=== PATIENT | female | born 1945 | race Caucasian/White ===

== ENCOUNTER 2018-10-13 15:54 | Observation (INO) ==
[2018-10-13] MEDS ORDERED: 0.9 % Sodium Chloride 1,000 ML IVC ONE (16:15)
--- NOTE | 2018-10-13 16:32 | Emergency Department Note ---
Disposition Clinical Impression: Irregular heartbeat Disposition: Admitted As Inpatient Condition: Fair Referrals: Mel Lance MD [Primary Care Provider] - Forms: ED Satisfaction Letter Time of Disposition: 17:58 Arrhythmia/Palpitations HPI - General Chief Complaint: ED Arrhythmia/Palpitations Stated Complaint: heart feels fluttery Time Seen by Provider: 10/13/18 16:08 Source: patient Mode of arrival: wheelchair Limitations: no limitations Nursing Notes Reviewed: Yes Vital Signs Reviewed: Yes - History of Present Illness Pt Subjective Complaint: "skipped beats", palpitations Onset (ago): Just LEASE OUT MAN Duration: intermittent, now resolved (Patient states it lasted for about a half an hour and then resolved. 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 Denies: chest pain, shortness of breath, near-syncope, diaphoresis - Related Data Home Medications Medication Instructions Recorded Confirmed Estrogens, Conjugated [Premarin] 0.3 mg PO DAILY 11/08/17 10/13/18 Levothyroxine [Synthroid] 25 mcg PO DAILY 11/08/17 10/13/18 Multivitamin [Multivitamins] 1 each PO DAILY 11/08/17 10/13/18 [place]-3/Dha/Epa/Fish Oil [[place] 3 1 each PO DAILY 11/08/17 10/13/18 500 Softgel] Previous Rx's Medication Instructions Recorded GuaiFENesin/Dextromethorphan 5 ml PO Q6HR PRN #120 syrup 11/08/17 [Robitussin/DM] Allergies Allergy/AdvReac Type Severity Reaction Status Date / Time No Known Allergies Allergy Verified 10/13/18 16:05 All systems ED: reviewed and negative except as stated. Constitutional: Denies: fever Cardiovascular: Reports: palpitations. Denies: chest pain Respiratory: Denies: dyspnea, wheezes Gastrointestinal: Denies: abdominal pain, nausea, vomiting Musculoskeletal: Denies: joint swelling Integumentary: Denies: rash Past Medical History - Past Medical History Attestation: Yes The following information was validated with the patient. Source: patient, old records reviewed, nursing notes reviewed Medical history: Reports: non-contributory Psychiatric history: Reports: no psych history - Social History Smoking Status: Never smoker Smokeless Tobacco Status: No Alcohol use: Reports: occasionally Drug use: Reports: none Physical Exam - General Limitations: no limitations General appearance: alert, in no apparent distress - Head Head exam: atraumatic, normocephalic, normal inspection - Eye Eye exam: Present: normal appearance, PERRL, EOMI. Absent: scleral icterus, conjunctival injection, periorbital swelling - ENT ENT exam: normal exam, normal oropharynx, mucous membranes moist, normal external ear exam - Neck Neck exam: Present: normal inspection, full ROM, trachea midline. Absent: thyr omegaly - Chest Chest inspection: Present: normal inspection, symmetric chest wall rise. Absent: tenderness - Respiratory Respiratory exam: Present: normal lung sounds bilaterally. Absent: respiratory distress, wheezes - Cardiovascular Cardiovascular exam: Present: regular rate, normal rhythm, normal heart sounds, other (Patient had a very occasional extra beat on exam) - Abdominal Exam Abdominal exam: Present: soft, Non-Tender, normal bowel sounds - Extremities Exam Extremities exam: Present: normal inspection. Absent: pedal edema, calf tenderness - Neurological Exam Neurological exam: Present: alert, oriented X3 - Psychiatric Psychiatric exam: Present: normal affect, normal mood - Skin Skin exam: Present: warm, dry. Absent: rash Course Course Narrative: Patient presents emergency department after having some persistent palpitations of her heart. She is very insistent that it was not a racing heartbeat but rather skipping beats but they were frequent and they lasted for about a half hour. She says she felt while it was happening. Here in the department she says she just feels tired. She did not have any chest pain or shortness of breath or nausea or diaphoresis or syncope. Here in the department I have only seen a very occasional PVC on the alarm security or surveillance monitor. Physical exam is unremarkable. We will do a workup on the patient and keep her monitored. I will give her some IV fluids. Disposition will be based on diagnostic results and reevaluation. - Reevaluation(s) Reevaluation #1: Workup was negative at this point. However this is a 71-year-old lady who is in very good state of health who has this abrupt onset of irregular heartbeat that is extremely unusual for her. Furthermore made her feel weak so she was symptomatically with it. I am only seen a couple PVCs here and they are in the department but because of the overall situation I think it smart to keep her in the hospital and monitor her overnight for any other dysrhythmia that may occur. I discussed the case with Dr. Turk hospitalist and he accepted patient for admission. Time: 17:57 - Consultations Consultation #1: Dr. Turk, hospitalist - I discussed case with the hospitalist. He gave verbal orders to admit the patient. Time: 17:50 Vital Signs Temperature 98.2 F 10/13/18 15:56 Pulse Rate 65 10/13/18 15:56 Respiratory Rate 14 10/13/18 15:56 Blood Pressure 149/98 10/13/18 15:56 O2 Sat by Pulse Oximetry 97 10/13/18 15:56 Temperature 98.2 F 10/13/18 15:56 Pulse Rate 64 10/13/18 17:46 Respiratory Rate 18 10/13/18 17:46 Blood Pressure 146/73 10/13/18 17:46 O2 Sat by Pulse Oximetry 99 10/13/18 17:46 Oxygen Delivery Oxygen Delivery Room Air Arrhythmia/Palpitations - Medical Records Medical records reviewed: Yes I reviewed the patient's medical records. - Lab Data Lab results reviewed: Yes I reviewed the patient's lab results. Result diagrams: 10/13/18 16:29 10/13/18 16:29 Lab Results 10/13/18 10/13/18 10/13/18 Range/Units 16:12 16:29 16:29 WBC 5.2 (4.3-11.1) K/mcL RBC 3.49 L (3.82-4.97) M/mcL Hgb 10.7 L (11.5-15.4) g/dL Hct 32.1 L (35.3-44.9) % MCV 92.0 (83.0-100.0) fL MCH 30.7 (28.0-33.3) pg MCHC 33.3 (31.6-35.5) g/dL RDW 12.1 (11.5-14.5) % Plt Count 323 (140-400) K/mcL MPV 9.3 L (9.4-12.4) fL Immature Gran % 0.4 (0-4) % Seg Neutrophils % 42.4 % Lymphocytes % 41.1 % Monocytes % 11.0 % Eosinophils % 4.3 % Basophils % 0.8 % Neutrophils # 2.2 (1.6-8.9) K/mcL Lymphocytes # 2.1 (0.6-4.6) K/mcL Monocytes # 0.6 (0.0-1.3) K/mcL Eosinophils # 0.2 (0.0-0.6) K/mcL Basophils # 0.0 (0.0-0.2) K/mcL D-Dimer 403 (0-500) ng/mLFEU Sodium (136-145) mEq/L Potassium (3.5-5.1) mEq/L Chloride (98-107) mEq/L Carbon Dioxide (23-29) mEq/L BUN (8-23) mg/dL Creatinine (0.60-1.20) mg/dL Est GFR ( Amer) (> 60) Est GFR (Non-Af Amer) (> 60) BUN/Creatinine Ratio (6-26) Glucose (70-105) mg/dL POC Glucose 106 H (70-99) mg/dL Calculated Osmolality (280-300) Calcium (8.6-10.3) mg/dL Troponin I (< 0.04) ng/mL B-Natriuretic Peptide (Less than 100) pg/mL Urine Color (Yellow) Urine Clarity (Clear) Urine pH (5.0-8.0) pH Units Ur Specific [place] (1.010-1.025) Urine Protein (Neg-Trace) mg/dL Urine Glucose (UA) (Normal) mg/dL Urine Ketones (Negative) mg/dL Urine Blood (Negative) Urine Nitrite (Negative) Urine Bilirubin (Negative) Urine Urobilinogen (Normal) mg/dL Ur Leukocyte Esterase (Negative) Ur Culture Indicated? (NO) 10/13/18 10/13/18 10/13/18 Range/Units 16:29 16:29 16:35 WBC (4.3-11.1) K/mcL RBC (3.82-4.97) M/mcL Hgb (11.5-15.4) g/dL Hct (35.3-44.9) % MCV (83.0-100.0) fL MCH (28.0-33.3) pg MCHC (31.6-35.5) g/dL RDW (11.5-14.5) % Plt Count (140-400) K/mcL MPV (9.4-12.4) fL Immature Gran % (0-4) % Seg Neutrophils % % Lymphocytes % % Monocytes % % Eosinophils % % Basophils % % Neutrophils # (1.6-8.9) K/mcL Lymphocytes # (0.6-4.6) K/mcL Monocytes # (0.0-1.3) K/mcL Eosinophils # (0.0-0.6) K/mcL Basophils # (0.0-0.2) K/mcL D-Dimer (0-500) ng/mLFEU Sodium 133 L (136-145) mEq/L Potassium 4.0 (3.5-5.1) mEq/L Chloride 101 (98-107) mEq/L Carbon Dioxide 24 (23-29) mEq/L BUN 13 (8-23) mg/dL Creatinine 0.89 (0.60-1.20) mg/dL Est GFR ( Amer) > 60 (> 60) Est GFR (Non-Af Amer) > 60 (> 60) BUN/Creatinine Ratio 15 (6-26) Glucose 102 (70-105) mg/dL POC Glucose (70-99) mg/dL Calculated Osmolality 276 L (280-300) Calcium 9.2 (8.6-10.3) mg/dL Troponin I < 0.03 (< 0.04) ng/mL B-Natriuretic Peptide 32 (Less than 100) pg/mL Urine Color Yellow (Yellow) Urine Clarity Clear (Clear) Urine pH 6.0 (5.0-8.0) pH Units Ur Specific [place] <= 1.005 L (1.010-1.025) Urine Protein Negative (Neg-Trace) mg/dL Urine Glucose (UA) Normal (Normal) mg/dL Urine Ketones Negative (Negative) mg/dL Urine Blood Negative (Negative) Urine Nitrite Negative (Negative) Urine Bilirubin Negative (Negative) Urine Urobilinogen Normal (Normal) mg/dL Ur Leukocyte Esterase Negative (Negative) Ur Culture Indicated? NO (NO) - Radiology Data Radiology results reviewed: Yes I reviewed the patient's radiology results. - EKG Data EKG attestation: Yes I reviewed and interpreted this EKG. EKG results narrative: Twelve-lead EKG performed at 1601 p.m. ordered, reviewed and interpreted by ED physician shows a sinus rhythm at a rate of 65. Normal axis. Good R-wave progression across precordium. A single PVC was noted. The PVC was atypical in appearance. There was one other beat that showed an unusual ST segments. The rest of the EKG showed no acute ischemic changes.
[2018-10-13 16:35] LABS: Hematocrit 32.1 % (35.3-44.9); Hemoglobin 10.7 g/dL (11.5-15.4); Mean Corpuscular HGB Conc 33.3 g/dL (31.6-35.5); Mean Corpuscular Hemoglobin 30.7 pg (28.0-33.3); Mean Platelet Volume 9.3 fL (9.4-12.4); Platelet Count 323 K/mcL (140-400); Red Blood Count 3.49 M/mcL (3.82-4.97); Red Cell Distribution Width 12.1 % (11.5-14.5); Segmented Neutrophils % 42.4 %
[2018-10-13 16:36] LABS: Basophils % 0.8 %; Eosinophils # 0.2 K/mcL (0.0-0.6); Eosinophils % 4.3 %; Immature Granulocytes % 0.4 % (0-4); Lymphocytes # 2.1 K/mcL (0.6-4.6); Lymphocytes % 41.1 %; Monocytes # 0.6 K/mcL (0.0-1.3); Neutrophils # 2.2 K/mcL (1.6-8.9)
[2018-10-13 16:50] LABS: Bilirubin,Urine Negative (Negative); Blood,Urine Negative (Negative); Clarity,Urine Clear (Clear); Color,Urine Yellow (Yellow); Glucose,Urine (UA) Normal (Normal); Ketones,Urine Negative (Negative); Leukocyte Esterase,Urine Negative (Negative); Nitrite,Urine Negative (Negative); Protein,Urine Negative (Neg-Trace); Specific Gravity,Urine <= 1.005 (1.010-1.025); Urobilinogen,Urine Normal (Normal)
[2018-10-13 16:53] LABS: BUN/Creatinine Ratio 15 (6-26); Blood Urea Nitrogen 13 mg/dL (8-23); Calcium 9.2 mg/dL (8.6-10.3); Carbon Dioxide 24 mEq/L (23-29); Chloride 101 mEq/L (98-107); Glucose 102 mg/dL (70-105); Osmolality,Calculated 276 (280-300); Sodium 133 mEq/L (136-145); eGFR For Non-African Americans > 60 (> 60)
[2018-10-13 16:54] LABS: Troponin I < 0.03 ng/mL (< 0.04)
[2018-10-13] MEDS ORDERED: Naloxone 0.4 MG/ML INJ IVP PRN (18:37)
[2018-10-13] MEDS: 0.9 % Sodium Chloride 1,000 ML IVC SCH (19:50)
[2018-10-14 06:26] VITALS: BP 137/75
[2018-10-14] MEDS ORDERED: Levothyroxine 25 MCG TABLET PO SCH (06:30)
[2018-10-14] MEDS: 0.9 % Sodium Chloride 1,000 ML IVC SCH (08:42)
--- NOTE | 2018-10-14 10:33 | Internal Med History&Physical ---
Date of Encounter: 10/14/18 Time of Encounter: 10:05 Assessment and Plan (1) PVCs (premature ventricular contractions) Current visit: Yes Status: Acute Symptomatic. Now resolved without recurrence for several hours. She wishes to be discharged home. (2) Anemia Current visit: Yes Status: Acute Hemoglobin has progressively decreased since the 07/07/2018 level of 12.6. Anemia testing can be done as an outpatient. Qualifiers: Anemia type: unspecified type Qualified Code(s): D64.9 - Anemia, unspecified (3) Hypothyroidism Current visit: Yes Status: Chronic TSH was normal at 1.4790 09/17/2018. Qualifiers: Hypothyroidism type: unspecified Qualified Code(s): E03.9 - Hypothyroidism, unspecified Internal Medicine - H&P: HPI Chief complaint: Palpitations Admitted From: Emergency Dept Plans for Post Hospital Care: Home History of present illness: Ms. 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 When the sensation of palpitations persisted she came to emergency room. Her manager cardiac cath showed occasional PVCs. She was admitted to [facility] floor for ongoing care needs. She has had occasional short-lived sensation of ectopy in the past. There has been no syncopal or syncopal episodes. She denies hypertension [place] heart failure angina DVT or pulmonary embolus. She has not had stress test or heart catheter done. She feels back to her baseline now and wishes to be discharged home. Past Med Surg Social Fam HX - Past Medical History Medical history: non-contributory, arthritis, malignancy, thyroid disease Psychiatric history: no psych history - Past Surgical History Surgical History: cancer surgery, hysterectomy - Social History Smoking Status: Never smoker Smokeless Tobacco Status: No Alcohol use: occasionally Drug use: none - Family History Mother Living Status: Hx Family Cardiac Disorders: Yes Internal Medicine - H&P: Meds Estrogens, Conjugated [Premarin] 0.3 mg PO DAILY 11/08/17 [History] GuaiFENesin/Dextromethorphan [Robitussin/DM] 5 ml PO Q6HR PRN #120 syrup 11/08/17 [Rx] Levothyroxine [Synthroid] 25 mcg PO DAILY 11/08/17 [History] Multivitamin [Multivitamins] 1 each PO DAILY 11/08/17 [History] [place]-3/Dha/Epa/Fish Oil [[place] 3 500 Softgel] 1 each PO DAILY 11/08/17 [History] Allergy/AdvReac Type Severity Reaction Status Date / Time No Known Allergies Allergy Verified 10/13/18 16:05 All Systems PM: A 10-system review of systems was performed and is negative for pertinent findings except as documented above in the HPI. Review of systems: Gen.: She states her weight is stable the past few months Cardiovascular: As per history of present illness Respiratory: She is a lifelong nonsmoker and has no known chronic lung disease GI: She denies disorders of her liver gallbladder or exocrine pancreas. She had colon cancer 2001 with segmental resection which was curative. She did not require chemotherapy postoperatively. She has had several colonoscopies since the resection with most recent one 2014. She denies melena or hematochezia. : She has had kidney stones in the past. 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 Neurologic: She denies large distribution strokes or seizures. Endocrine: She has history of hypothyroidism and hyperlipidemia. She denies diabetes. Hematology/oncology: She had colon cancer 2001 as per above. She denies other internal malignancies. She reports history of anemia but was unaware she had anemia on labs in emergency room. Psychiatric: She denies anxiety depression or other mental health issues. [place] skeletal: She has had bilateral knee injections. She has DJD and history of Raynaud's disease. - Constitutional Vitals: Temp Pulse Resp BP Pulse Ox 98.5 F 61 16 137/75 96 10/14/18 06:26 10/14/18 06:26 10/14/18 06:26 10/14/18 06:26 10/14/18 06:26 Exam: Gen.: She is a well-developed well-nourished female resting comfortably in bed who appears in no acute distress at present time HEENT: Head is atraumatic and normocephalic. Eyes: EOMI. There is no scleral icterus. Mouth: Mucosa is moist. Neck: Supple and nontender. There is no thyromegaly or adenopathy noted. Heart: Regular without murmurs gallops or ectopics Lungs: No wheezes or crackles are heard. Abdomen: Soft and nontender. No masses or guarding are noted. Extremities: There is no cyanosis edema or clubbing noted. Dorsalis pedis and posttibial pulses are 1-2 over 2 bilaterally. She has DJD changes of her hands. Neurologic: Mental status: She is talkative and a good historian. Cranial nerves: Smile is symmetric. Forehead wrinkles bilaterally. Tongue protrudes midline. EOMI. Motor: There is no pronator drift. Cerebellar: Finger to nose is intact bilaterally. Skin: Warm and dry Internal Med - H&P Results - Labs CBC & Chem 7: 10/13/18 16:29 10/13/18 16:29 Labs: Short CBC 10/13/18 Range/Units 16:29 WBC 5.2 (4.3-11.1) K/mcL Hgb 10.7 L (11.5-15.4) g/dL Hct 32.1 L (35.3-44.9) % Plt Count 323 (140-400) K/mcL Neutrophils # 2.2 (1.6-8.9) K/mcL BMP 10/13/18 16:29 Sodium 133 L Potassium 4.0 Chloride 101 Carbon Dioxide 24 BUN 13 Creatinine 0.89 Glucose 102 Calcium 9.2 Cardiac Enzymes 10/13/18 10/13/18 10/14/18 Range/Units 16:29 22:24 04:36 Troponin I < 0.03 < 0.03 < 0.03 (< 0.04) ng/mL Urine 10/13/18 Range/Units 16:35 Urine Color Yellow (Yellow) Urine Clarity Clear (Clear) Urine pH 6.0 (5.0-8.0) pH Units Ur Specific [place] <= 1.005 L (1.010-1.025) Urine Protein Negative (Neg-Trace) mg/dL Urine Glucose (UA) Normal (Normal) mg/dL - Impressions ITS Impressions Chest X-Ray 10/13/18 16:15 IMPRESSION: No acute cardiopulmonary findings. D/ / Skip Espinosa / Skip Espinosa Interpreting Provider: Skip Espinosa
--- NOTE | 2018-10-14 10:55 | Discharge Summary ---
Orders not resulted at time of discharge: Pending orders 10/14/18 10:30 Troponin I Q6H Date of Encounter: 10/14/18 Time of Encounter: 10:05 - Discharge Diagnosis (1) PVCs (premature ventricular contractions) Priority: Primary Status: Acute (2) Anemia Priority: Secondary Status: Acute Qualifiers: Anemia type: unspecified type Qualified Code(s): D64.9 - Anemia, unspecified (3) Hypothyroidism Priority: Secondary Status: Chronic Qualifiers: Hypothyroidism type: unspecified Qualified Code(s): E03.9 - Hypothyroidism, unspecified Hospital course: Ms. 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 When the sensation of palpitations persisted she came to emergency room. Her youth nutritional monitor showed occasional PVCs. She was admitted to [facility] for ongoing care needs. Initial orders were written by the emergency room physician. I saw her on October 14 and performed a history physical and discharge. She was placed on telemetry and no ectopy was observed. Repeat cardiac enzymes show no evidence of myocardial damage. When I saw her she felt back to her baseline and wished to be discharged home which I felt was reasonable. She will follow with her PCP within 1 week. I told her she had anemia on labs in emergency room. Her PCP can order further workup as needed. She will follow Dr. Lance within 1 week. - Time Spent with Patient Total time spent providing and/or coordinating discharge services: - Discharge Medications Home Medications: Estrogens, Conjugated [Premarin] 0.3 mg PO DAILY 11/08/17 [History] GuaiFENesin/Dextromethorphan [Robitussin/Dm] 5 ml PO Q6HR PRN #120 syrup 11/08/17 [Rx] Levothyroxine [Synthroid] 25 mcg PO DAILY 11/08/17 [History] Multivitamin [Multivitamins] 1 each PO DAILY 11/08/17 [History] [place]-3/Dha/Epa/Fish Oil [[place] 3 500 Softgel] 1 each PO DAILY 11/08/17 [History] Allergies/Adverse Reactions: Allergy/AdvReac Type Severity Reaction Status Date / Time No Known Allergies Allergy Verified 10/13/18 16:05 Date of admission: 10/13/18 18:13 Primary care physician: Mel Lance - Constitutional Vitals: Temp Pulse Resp BP Pulse Ox 98.5 F 61 16 137/75 96 10/14/18 06:26 10/14/18 06:26 10/14/18 06:26 10/14/18 06:26 10/14/18 06:26 - Patient Status Disposition: Home, Self-Care Condition: Fair - Discharge Instructions Follow Up With: Mel Lance MD [Primary Care Provider] - 1 week - Diet and Activity Activity: resume usual activities as tolerated Diet: advance to your usual diet
--- NOTE | 2018-10-14 12:34 | Electrocardiograph Report ---
[address] [address] Test Date: 2018-10-13 Pat Name: Janeth Yangp Department: 9201 Room: [facility] Gender: F Content Analyst: [id number] : 1945 Requested By: Zak Ca Order Number: [id number] Reading MD: Isis Duong Measurements Intervals [place]ty Rate: 65 P: 65 ME: 160 QRS: 9 QRSD: 80 T: 47 QT: 410 QTc: 422 Interpretive Statements SINUS RHYTHM POSSIBLE LEFT ATRIAL ENLARGEMENT SEPTAL MYOCARDIAL INFARCTION, PROBABLY OLD Electronically Signed On 10-14-2018 12:32:45 EST by Isis Duong
--- NOTE | 2018-10-14 14:53 | Electrocardiograph Report ---
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
== END 2018-10-14 12:16 | disposition home or self-care (01) ==
LOC: INPPIK 15:54 → EMEROOPIK 15:54 → INPPIK 18:33
PROVIDERS: ADMIT Internal Medicine; ATTEND Internal Medicine